=== PATIENT | male | born 1965 | race Caucasian/White ===

== ENCOUNTER 2020-12-09 08:45 | Emergency (ER) | payer OTHER ==
[~2020-12-09] VITALS: Ht 175.3 cm; Wt 98.0 kg
[~2020-12-09 08:45] MED LIST: AMBIEN10 MG PO; ANDROGEL1.25 GM TD; ASPIRIN EC325 MG PO; CIALIS5 MG PO; DICLOFENAC SODI75 MG PO; FISH OIL 1,0001 EAC2 NG; FLOMAX0.4 MG PO; GABAPENTIN600 MG PO; GARLIC1 EAC1 PO; ICAPS AREDS2 C1 EACH PO; IRON18 MG PO; METOPROLOL SUCC50 MG PO; OXYCODONE HCL5 MG PO; SENNA LAX8.6 MG PO; TRAMADOL HCL50 MG PO; VITAMIN D250000 UNIT PO; XARELTO10 MG PO
[2020-12-09] MEDS ORDERED: OXYCODONE HCL5 MG PO (09:35)
[2020-12-09] MEDS ORDERED: BACTRIM DS TAB1 EACH PO (09:35)
== END 2020-12-09 10:05 | disposition home or self-care (01) ==
LOC: ED 08:45
DX: G89.18 Other acute postprocedural pain (principal); M25.561 Pain in right knee; I10 Essential (primary) hypertension; Z87.891 Personal history of nicotine dependence; Z79.899 Other long term (current) drug therapy
CPT/HCPCS: 99283

== ENCOUNTER 2022-11-07 15:25 | Emergency (ER) | payer OTHER ==
[~2022-11-07] VITALS: Ht 175.3 cm; Wt 88.2 kg
[~2022-11-07 15:25] MED LIST changes: +BACTRIM DS TAB1 EACH PO
--- OUTSIDE RECORDS SUMMARY | 2022-11-07 15:28 | XMS ---
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 EChris VISIT COUNT (12 MO.) 1 PRACHI Scott TOTAL 1 NOTE: Visits indicate total known visits. ED/UCC VISIT TRACKING (12 MO.) 11/07/2022 15:26 PRACHI Lino OR TYPE: Emergency COMPLAINT: - RT FOOT PAIN INPATIENT VISIT TRACKING (12 MO.) 01/08/2022 08:53 Jg Gu OR TYPE: Neuro Surgery DIAGNOSES: - Other intervertebral disc degeneration, lumbar region - Spondylolisthesis, thoracolumbar region - Flatback syndrome, site unspecified - Arthrodesis status - Spondylolisthesis, thoracolumbar region - Flatback syndrome, site unspecified - Arthrodesis status - Radiculopathy, lumbar region - Radiculopathy, lumbar region - Other intervertebral disc degeneration, lumbar region - Spondylosis without myelopathy or radiculopathy, lumbar region - Spondylosis without myelopathy or radiculopathy, lumbar region [email or web address]
== END 2022-11-07 18:51 | disposition home or self-care (01) ==
LOC: ED 15:25
DX: M79.671 Pain in right foot (principal); I10 Essential (primary) hypertension; Z87.891 Personal history of nicotine dependence; Z79.899 Other long term (current) drug therapy; Z79.82 Long term (current) use of aspirin
CPT/HCPCS: 99283

== ENCOUNTER 2024-10-31 10:48 | Emergency (ER) | payer MEDICARE, OTHER ==
[~2024-10-31] VITALS: Ht 177.8 cm; Wt 102.1 kg
[~2024-10-31 10:48] MED LIST changes: +CYCLOBENZAPRINE10 MG PO; +ZYLOPRIM100 MG PO
[2024-10-31] MEDS ORDERED: MORPHINE SULFATE 4 MG/ML VIAL IV ONE (11:00)
[2024-10-31] MEDS ORDERED: CEFAZOLIN SODIUM 1 GM/10 ML SYR IV ONE (11:00)
[2024-10-31] MEDS ORDERED: METOPROLOL SUCC25 MG PO (11:03)
[2024-10-31] MEDS ORDERED: ondansetron HCL 4 MG/2 ML VIAL IV ONE (11:15)
[2024-10-31] MEDS ORDERED: HYDROmorphone HCL 1 MG/ML SYR IV ONE ×2 (11:30→12:45)
[2024-10-31] MEDS ORDERED: HYDROCODON-ACE1 EA10 PO (14:00)
[2024-10-31] MEDS ORDERED: CEPHALEXIN500 M1 PO (14:00)
[2024-10-31 14:18] VITALS: BP 146/91
== END 2024-10-31 14:18 | disposition home or self-care (01) ==
LOC: ED 10:48
DX: S62.631B Displaced fracture of distal phalanx of left index finger, initial encounter for open fracture (principal); S61.213A Laceration without foreign body of left middle finger without damage to nail, initial encounter; S61.215A Laceration without foreign body of left ring finger without damage to nail, initial encounter; I10 Essential (primary) hypertension; Z87.891 Personal history of nicotine dependence; Z79.899 Other long term (current) drug therapy; W23.0XXA Caught, crushed, jammed, or pinched between moving objects, initial encounter
CPT/HCPCS: 12002; 26755; 73130; 99283-25; J0690; J1171; J2270; J2405